=== PATIENT | male | born 1970 | race Caucasian/White ===

== ENCOUNTER 2017-08-30 11:13 | Observation (INO) ==
[2017-08-30] MEDS ORDERED: methylPREDNISolone 125 MG/2 ML VIAL IVP ONE (11:19)
[2017-08-30] MEDS ORDERED: Ipratropium/Albuterol Neb 3 ML IH ONE ×2 (11:19→12:05)
--- NOTE | 2017-08-30 11:23 | Emergency Department Note ---
Disposition Clinical Impression: Acute exacerbation of chronic obstructive airways disease Disposition: Admitted As Inpatient Condition: Fair Forms: ED Satisfaction Letter Time of Disposition: 12:46 SOB HPI - General Chief Complaint: ED Shortness of Breath/Dyspnea Stated Complaint: [place] Time Seen by Provider: 08/30/17 11:17 Source: patient Mode of arrival: ambulatory Limitations: no limitations Nursing Notes Reviewed: Yes Vital Signs Reviewed: Yes - History of Present Illness 46-year-old smoker who comes in complaining of increasing shortness of breath. Says been on for several days. Patient is smoked for several years. Seen at the urgent care they wanted to come to the ER because of a low pulse ox at 90 and that was several days ago. He thought he was feeling better but did continue to have some wheezing which has gotten worse over the last day or so. They did give him a shot of steroids however no further treatment was given. Pt Subjective Complaint: shortness of breath, cough Onset (ago): day(s) Context: recent illness Consistency/Duration: constant Improves with: nothing Worsens with: exertion Known history of: COPD Associated symptoms: Reports: cough Treatment prior to arrival: other (Steroid injection) Cough Description: Involuntary Cough Frequency: Intermittent - Related Data Previous Rx's Medication Instructions Recorded Colchicine [Colcrys] 0.6 mg PO Q1H PRN #3 tablet 10/02/15 Cyclobenzaprine [Flexeril] 10 mg PO TID #30 tablet 08/11/16 Ketorolac [Toradol] 10 mg PO Q6HR #10 tablet 08/11/16 Tramadol HCl [Ultram] 50 mg PO BID PRN #10 tab 08/11/16 Allergies Allergy/AdvReac Type Severity Reaction Status Date / Time No Known Allergies Allergy Verified 10/02/15 09:38 All systems ED: reviewed and negative except as stated. Constitutional: Denies: fever, chills, weakness, weight change Eyes: Denies: eye pain, eye discharge, vision change ENT ED: Denies: ear pain, throat pain, dental pain, hearing loss, epistaxis, congestion, dysphagia Cardiovascular: Denies: chest pain, palpitations, dyspnea on exertion, edema, syncope Respiratory: Reports: cough, dyspnea, wheezes. Denies: hemoptysis, stridor Gastrointestinal: Denies: abdominal pain, nausea, vomiting, diarrhea, constipation, hematemesis, melena, hematochezia Genitourinary: Denies: urgency, dysuria, frequency, hematuria Musculoskeletal: Denies: back pain, neck pain, arthralgia, myalgia Integumentary: Denies: rash, abrasion, lesions Neurological: Denies: headache, weakness, numbness, paresthesias, confusion, abnormal gait, vertigo Psychiatric: Denies: anxiety, depression, suicidal thoughts, homicidal thoughts , auditory hallucinations, visual hallucinations Endocrine: Denies: fatigue Hematological/Lymphatic: Denies: easy bleeding, easy bruising Allergic/Immunologic: Denies: facial swelling, urticaria Past Medical History - Past Medical History Medical history: Reports: hypertension, other Psychiatric history: Reports: no psych history - Social History Smoking Status: Current every day smoker Smokeless Tobacco Status: No Alcohol use: Reports: occasionally Drug use: Reports: none Physical Exam - General Limitations: no limitations General appearance: alert, in no apparent distress - Head Head exam: atraumatic, normocephalic, normal inspection - Eye Eye exam: Present: normal appearance, PERRL, EOMI - ENT ENT exam: normal exam, normal oropharynx, mucous membranes moist - Neck Neck exam: Present: normal inspection, full ROM, trachea midline - Chest Chest inspection: Present: normal inspection, symmetric chest wall rise - Respiratory Respiratory exam: Present: wheezes - Cardiovascular Cardiovascular exam: Present: regular rate, normal rhythm, normal heart sounds - Abdominal Exam Abdominal exam: Present: soft, Non-Tender. Absent: tenderness, distention, guarding, rebound, rigidity - Extremities Exam Extremities exam: Present: normal inspection, full ROM. Absent: tenderness, pedal edema - Expanded Lower Extremity Exam Neurovascular/Tendon exam: Absent: motor deficit, sensory deficit, tendon deficit Gait: observed and normal - Back Exam Back exam: Present: normal inspection, full ROM. Absent: tenderness - Neurological Exam Neurological exam: Present: alert, oriented X3 - Psychiatric Psychiatric exam: Present: normal affect, normal mood - Skin Skin exam: Present: warm, dry, intact, normal color Course - Reevaluation(s) Reevaluation #1: The patient with a long history of cigarette smoking comes in with wheezing and shortness of breath. Chest x-rays negative. Pulse ox however within the high 80s on room air. In light of the hypoxia were going to admit for further evaluation and treatment. Time: 12:45 - Consultations Consultation #1: Discussed with , admit. Time: 12:46 Vital Signs Temperature 97.8 F 08/30/17 11:15 Pulse Rate 87 08/30/17 11:15 Respiratory Rate 18 08/30/17 11:15 Blood Pressure 146/80 08/30/17 11:15 O2 Sat by Pulse Oximetry 92 08/30/17 11:15 Temperature 97.8 F 08/30/17 11:19 Pulse Rate 83 08/30/17 12:18 Respiratory Rate 18 08/30/17 12:18 Blood Pressure 141/84 08/30/17 12:18 O2 Sat by Pulse Oximetry 92 08/30/17 12:36 Oxygen Delivery Oxygen Delivery Aerosol Mask Shortness of Breath/Dyspnea - Lab Data Result diagrams: 08/30/17 11:33 08/30/17 11:33 Lab Results 08/30/17 08/30/17 08/30/17 Range/Units 11:33 11:33 11:33 WBC 9.0 (4.3-11.1) K/mcL RBC 5.43 (4.19-5.50) M/mcL Hgb 16.2 (12.9-16.9) g/dL Hct 47.3 (37.5-50.1) % MCV 87.1 (83.0-100.0) fL MCH 29.8 (28.0-33.3) pg MCHC 34.2 (31.6-35.5) g/dL RDW 12.3 (11.5-14.5) % Plt Count 306 (140-400) K/mcL MPV 9.9 (9.4-12.4) fL Immature Gran % 0.3 (0-4) % Seg Neutrophils % 65.4 % Lymphocytes % 20.7 % Monocytes % 8.4 % Eosinophils % 4.2 % Basophils % 1.0 % Neutrophils # 5.9 (1.6-8.9) K/mcL Lymphocytes # 1.9 (0.6-4.6) K/mcL Monocytes # 0.8 (0.0-1.3) K/mcL Eosinophils # 0.4 (0.0-0.6) K/mcL Basophils # 0.1 (0.0-0.2) K/mcL Sodium 137 (136-145) mEq/L Potassium 4.0 (3.5-5.1) mEq/L Chloride 100 (98-107) mEq/L Carbon Dioxide 30 H (23-29) mEq/L BUN 24 H (6-20) mg/dL Creatinine 1.28 (0.70-1.30) mg/dL Est GFR ( Amer) > 60 (> 60) Est GFR (Non-Af Amer) > 60 (> 60) BUN/Creatinine Ratio 19 (6-26) Glucose 93 (70-105) mg/dL Calculated Osmolality 288 (280-300) Lactic Acid 1.3 (0.5-2.2) mmol/L Calcium 10.1 (8.6-10.3) mg/dL Troponin I < 0.03 (< 0.04) ng/mL B-Natriuretic Peptide (Less than 100) pg/mL 08/30/17 Range/Units 11:33 WBC (4.3-11.1) K/mcL RBC (4.19-5.50) M/mcL Hgb (12.9-16.9) g/dL Hct (37.5-50.1) % MCV (83.0-100.0) fL MCH (28.0-33.3) pg MCHC (31.6-35.5) g/dL RDW (11.5-14.5) % Plt Count (140-400) K/mcL MPV (9.4-12.4) fL Immature Gran % (0-4) % Seg Neutrophils % % Lymphocytes % % Monocytes % % Eosinophils % % Basophils % % Neutrophils # (1.6-8.9) K/mcL Lymphocytes # (0.6-4.6) K/mcL Monocytes # (0.0-1.3) K/mcL Eosinophils # (0.0-0.6) K/mcL Basophils # (0.0-0.2) K/mcL Sodium (136-145) mEq/L Potassium (3.5-5.1) mEq/L Chloride (98-107) mEq/L Carbon Dioxide (23-29) mEq/L BUN (6-20) mg/dL Creatinine (0.70-1.30) mg/dL Est GFR ( Amer) (> 60) Est GFR (Non-Af Amer) (> 60) BUN/Creatinine Ratio (6-26) Glucose (70-105) mg/dL Calculated Osmolality (280-300) Lactic Acid (0.5-2.2) mmol/L Calcium (8.6-10.3) mg/dL Troponin I (< 0.04) ng/mL B-Natriuretic Peptide 5 (Less than 100) pg/mL - EKG Data EKG attestation: Yes I reviewed and interpreted this EKG. EKG shows normal: Reports: sinus rhythm Rate: Reports: normal Rhythm: Reports: NSR [place]/QRS: Reports: RBBB (Incomplete) When compared to previous EKG there are: no significant changes (04/13/2013) Interpretation: Reports: no acute changes
[2017-08-30 11:43] LABS: Basophils # 0.1 K/mcL (0.0-0.2); Eosinophils # 0.4 K/mcL (0.0-0.6); Eosinophils % 4.2 %; Hematocrit 47.3 % (37.5-50.1); Hemoglobin 16.2 g/dL (12.9-16.9); Immature Granulocytes % 0.3 % (0-4); Lymphocytes # 1.9 K/mcL (0.6-4.6); Lymphocytes % 20.7 %; Mean Corpuscular HGB Conc 34.2 g/dL (31.6-35.5); Mean Corpuscular Hemoglobin 29.8 pg (28.0-33.3); Mean Corpuscular Volume 87.1 fL (83.0-100.0); Mean Platelet Volume 9.9 fL (9.4-12.4); Monocytes # 0.8 K/mcL (0.0-1.3); Monocytes % 8.4 %; Neutrophils # 5.9 K/mcL (1.6-8.9); Platelet Count 306 K/mcL (140-400); Red Blood Count 5.43 M/mcL (4.19-5.50); Red Cell Distribution Width 12.3 % (11.5-14.5); Segmented Neutrophils % 65.4 %
[2017-08-30 12:07] LABS: BUN/Creatinine Ratio 19 (6-26); Blood Urea Nitrogen 24 mg/dL (6-20); Calcium 10.1 mg/dL (8.6-10.3); Carbon Dioxide 30 mEq/L (23-29); Chloride 100 mEq/L (98-107); Glucose 93 mg/dL (70-105); Osmolality,Calculated 288 (280-300); Sodium 137 mEq/L (136-145); eGFR For African Americans > 60 (> 60); eGFR For Non-African Americans > 60 (> 60)
[2017-08-30 12:08] LABS: Troponin I < 0.03 ng/mL (< 0.04)
--- NOTE | 2017-08-30 13:56 | Internal Med History&Physical ---
Date of Encounter: 08/30/17 Time of Encounter: 13:48 Internal Medicine - H&P: HPI Chief complaint: SOB Admitted From: Home Plans for Post Hospital Care: Home History of present illness: Mr. Booth is a 46 year old male who has history of hypertension gout, smoker presenting emergency room for shortness of breath for few days. Patient is a chronic smoker, he smokes a pack a day for over 25 years, he developed a cold symptoms 3 weeks ago, after that, he has been on and off coughing with white sputum. But over last few days, he got more shortness of breath, wheezing especially when he was mowing the lawn. In the emergency room he was found hypoxia, required 2 L of nasal cannula. Chest x-ray was negative, he has a mild CO2 elevation at 30. WBC 9.0 patient is going to be admitted for COPD exacerbation Past Med Surg Social Fam HX - Past Medical History Medical history: hypertension, other Psychiatric history: no psych history - Social History Smoking Status: Current every day smoker Smokeless Tobacco Status: No Alcohol use: occasionally Drug use: none Internal Medicine - H&P: Meds Allopurinol [Zyloprim 300 MG] 300 mg PO DAILY 08/30/17 [History] Metoprolol Succinate [Toprol Xl] 100 mg PO DAILY 08/30/17 [History] 3 Allergy/AdvReac Type Severity Reaction Status Date / Time No Known Allergies Allergy Verified 10/02/15 09:38 All Systems PM: Pertinent findings as documented above in the HPI. All other systems were reviewed and are negative . - Constitutional Vitals: Temp Pulse Resp BP Pulse Ox 97.8 F 79 15 138/82 92 08/30/17 11:19 08/30/17 13:26 08/30/17 13:26 08/30/17 13:26 08/30/17 13:26 General appearance: Present: A&O X 3, obese Exam: CONSTITUTIONAL: Patient appears as an age appropriate male well developed, in no acute distress. EYES Clear sclerae, bilateral pupils are equal, reactive to light and accommodation. Extraocular movements are intact RESPIRATORY: No accessory muscle use, bilateral wheezing to auscultation, no crackles/rales. CARDIOVASCULAR: Regular heart rate, normal S1 and S2, no murmurs GASTROINTESTINAL: bowel sounds present, soft, no tenderness. No hepatosplenomegaly. No bilateral CVA tenderness MUSCULOSKELETAL: Joints in normal range of motion, no clubbing, no edema, no cyanosis. Bilateral peripheral pulses 2+ LYMPHATIC no lymphadenopathy in neck, groin and axilla bilaterally, no thyromegaly. NEUROLOGIC: CN II to XII are grossly intact, no focal neurological deficit. Deep tendon reflexes 2+ bilaterally. Normal light touch sensation to upper and lower extremity PSYCHIATRIC: Oriented x3, with good insight, mood is euthymic. No hallucinations or delusions. SKIN: Skin warm and dry, no rashes, no open wound. Internal Med - H&P Results - Labs CBC & Chem 7: 08/30/17 11:33 08/30/17 11:33 - Assessment and plan (1) Acute exacerbation of chronic obstructive airways disease Current Visit: Yes Status: Acute Assessment and plan: Patient has COPD acute exacerbation, will give IV steroids and antibiotics nebulizer scheduled oxygen to keep O2 sats 88-92% (2) Hypertension Current Visit: Yes Status: Chronic Qualifiers: Hypertension type: essential hypertension Qualified Code(s): I10 - Essential (primary) hypertension (3) Gout Current Visit: Yes Status: Chronic Assessment and plan: Continue allopurinol Qualifiers: Gout site: unspecified site Gout etiology: idiopathic Chronicity: chronic Presence of tophus: without tophus Qualified Code(s): M1A.00X0 - Idiopathic chronic gout, unspecified site, without tophus (tophi) (4) Tobacco abuse counseling Current Visit: Yes Status: Chronic Assessment and plan: Patient has been swelling over last 25 years, smoking cessation discussed, will give nicotine patch and the gum as needed (5) Hypoxia Current Visit: Yes Status: Acute Assessment and plan: Acute hypoxia is likely from COPD exacerbation, weaning oxygen as needed - Time Spent With Patient Total time spent is greater than 50% in coordination of care (as documented) at patient's floor/unit and/or counseling patient: Greater than 35 minutes
[2017-08-30] MEDS ORDERED: Nicotine 21 MG PATCH.TD24 TD SCH (14:00)
[2017-08-30] MEDS ORDERED: levoFLOXacin 500 MG TABLET PO SCH (14:00)
[2017-08-30] MEDS ORDERED: Naloxone 0.4 MG/ML INJ IVP PRN (14:03)
[2017-08-30 14:52] VITALS: BP 170/83
[2017-08-30] MEDS ORDERED: MethylPREDNISolone 40 MG/ML VIAL IVP SCH (18:00)
--- NOTE | 2017-08-31 07:31 | Discharge Summary ---
Date of Encounter: 08/30/17 Time of Encounter: 19:00 - Discharge Diagnosis (1) Acute exacerbation of chronic obstructive airways disease Priority: Primary Status: Resolved (2) Hypertension Priority: Secondary Status: Chronic Qualifiers: Hypertension type: essential hypertension Qualified Code(s): I10 - Essential (primary) hypertension (3) Gout Priority: Secondary Status: Chronic Qualifiers: Gout site: unspecified site Gout etiology: idiopathic Chronicity: chronic Presence of tophus: without tophus Qualified Code(s): M1A.00X0 - Idiopathic chronic gout, unspecified site, without tophus (tophi) (4) Tobacco abuse counseling Priority: Secondary Status: Chronic (5) Hypoxia Priority: Secondary Status: Resolved Hospital course: Mr. Booth is a 46 year old male who has history of hypertension gout, smoker presenting emergency room for shortness of breath for few days. Patient is a chronic smoker, he smokes a pack a day for over 25 years, he developed a cold symptoms 3 weeks ago, after that, he has been on and off coughing with white sputum. But over last few days, he got more shortness of breath, wheezing especially when he was mowing the lawn. In the emergency room he was found hypoxia, required 2 L of nasal cannula. Chest x-ray was negative, he has a mild CO2 elevation at 30. WBC 9.0 patient is going to be admitted for COPD exacerbation After patient arrived the floor, he requested left AMA. Patient is on room air sating 91%. Patient left AGAINST MEDICAL ADVICE. - Time Spent with Patient Total time spent providing and/or coordinating discharge services: - Discharge Medications Home Medications: Allopurinol [Zyloprim 300 MG] 300 mg PO DAILY 08/30/17 [History] Metoprolol Succinate [Toprol Xl] 100 mg PO DAILY 08/30/17 [History] Allergies/Adverse Reactions: 3 Allergy/AdvReac Type Severity Reaction Status Date / Time No Known Allergies Allergy Verified 10/02/15 09:38 Date of admission: 08/30/17 13:19 Primary care physician: PCP NONE Consults: 08/30/17 14:00 Consult to Nurse Navigator [CONS] Routine Comment: 08/30/17 15:06 Consult to Spine Nurse [CONS] Routine Reason for SW Consult: POSSIBLE FINANCIAL CONCERNS - Constitutional Vitals: Temp Pulse Resp BP Pulse Ox 97.7 F 73 16 170/83 91 08/30/17 14:51 08/30/17 14:51 08/30/17 14:51 08/30/17 14:51 08/30/17 15:14 General appearance: Present: A&O X 3, obese - Patient Status Disposition: Left Against Medical Advice Condition: Fair - Discharge Instructions Follow Up With: NONE,PCP [Primary Care Provider] -
[2017-08-31] MEDS ORDERED: Metoprolol XL (24 HR) Succ 50 MG TAB.ER.24H PO SCH (09:00)
[2017-08-31] MEDS ORDERED: Tiotropium 18 MCG inhalation IH SCH (10:00)
--- NOTE | 2017-09-01 16:43 | Electrocardiograph Report ---
[address] [address] Test Date: 2017-08-30 Pat Name: Lex Booth Department: 103 Room: 3[facility] Gender: M Reconciliation Coordinator: HERO : 1970 Requested By: Sagar Barrios Order Number: [id number] Reading MD: Lata Cunha Measurements Intervals [place] Rate: 83 P: 28 MI: 147 QRS: 70 QRSD: 119 T: 62 QT: 351 QTc: 391 Interpretive Statements SINUS RHYTHM INCOMPLETE RIGHT BUNDLE BRANCH BLOCK [90+ ms QRS DURATION, TERMINAL R IN V1/V2, 40+ ms S IN I/aVL/V4/V5/V6] Electronically Signed On 09-01-2017 16:41:51 EDT by Lata Cunha
== END 2017-08-30 16:16 | disposition left against medical advice (07) ==
LOC: EMEROO 11:13 → 3NENU 11:13
PROVIDERS: ADMIT Student in an Organized Health Care Education/Training Program; ATTEND Student in an Organized Health Care Education/Training Program